=== PATIENT | male | born 1955 | race Caucasian/White ===

== ENCOUNTER → 2016-11-16 | Outpatient (CLI) | payer OTHER ==
[2016-11-16 11:38] LABS: ALBUMIN 3.9 g/dL (3.4-5.0); ALBUMIN/GLOBULIN RATIO 1.2 (1.0-1.7); CALCIUM 8.9 mg/dL (8.5-10.1); CHOLESTEROL/HDL RATIO 2.7; CREATININE 1.1 mg/dL (0.7-1.3); GFR 68.3; POTASSIUM 4.2 mmol/L (3.5-5.1); TOTAL BILIRUBIN 0.8 mg/dL (0.2-1.0); TOTAL PROTEIN 7.2 g/dL (6.4-8.2)
== END | disposition home or self-care (01) ==
LOC: LAB 10:23
PROVIDERS: ATTEND Internal Medicine Cardiovascular Disease
DX: I25.10 Atherosclerotic heart disease of native coronary artery without angina pectoris (principal)
CPT/HCPCS: 36415; 80053; 80061

== ENCOUNTER → 2017-11-22 | Outpatient (CLI) | payer OTHER ==
[2017-11-22 10:00] LABS: ALBUMIN 3.9 g/dL (3.4-5.0); ALBUMIN/GLOBULIN RATIO 1.2 (1.0-1.7); ALK PHOS 77 U/L (46-116); ALT (SGPT) 75 U/L (16-63); ANION GAP 7 (6-14); AST (SGOT) 31 U/L (15-37); BLOOD UREA NITROGEN 20 mg/dL (8-26); BUN/CREATININE RATIO 18 (6-20); CALCIUM 9.1 mg/dL (8.5-10.1); CARBON DIOXIDE 28 mmol/L (21-32); CHLORIDE 106 mmol/L (98-107); CHOLESTEROL 134 mg/dL (0-200); CHOLESTEROL/HDL RATIO 2.5; CREATININE 1.1 mg/dL (0.7-1.3); GFR 68.1; GLUCOSE 108 mg/dL (70-99); HDLC 54 mg/dL (40-60); LDLC 70 mg/dL (0-100); NON-HDL CHOLESTEROL 80 mg/dL (0-129); POTASSIUM 4.4 mmol/L (3.5-5.1); SODIUM 141 mmol/L (136-145); TOTAL BILIRUBIN 0.5 mg/dL (0.2-1.0); TOTAL PROTEIN 7.1 g/dL (6.4-8.2); TRIGLYCERIDES 49 mg/dL (0-150); VLDLC 10 mg/dL (0-40)
== END | disposition home or self-care (01) ==
LOC: LAB 09:35
DX: I25.10 Atherosclerotic heart disease of native coronary artery without angina pectoris (principal)
CPT/HCPCS: 36415; 80053; 80061

== ENCOUNTER → 2018-11-24 | Outpatient (CLI) | payer OTHER ==
[2018-11-24 15:18] LABS: BASO % 0 % (0-3); EOS # 0.2 x10^3/uL (0.0-0.7); EOS % 2 % (0-3); HEMATOCRIT 46.1 % (39.0-53.0); HEMOGLOBIN 15.5 g/dL (13.0-17.5); LYMPH # 1.9 x10^3/uL (1.0-4.8); LYMPH % 23 % (24-48); MEAN CORPUSCULAR HEMOGLOBIN 32 pg (25-35); MEAN CORPUSCULAR HGB CONC 34 g/dL (31-37); MEAN CORPUSCULAR VOLUME 93 fL (79-100); MONO # 0.9 x10^3/uL (0.0-1.1); MONO % 11 % (0-9); NEUT # 5.3 x10^3uL (1.8-7.7); NEUT % 64 % (31-73); PLATELET COUNT 219 x10^3/uL (140-400); RED BLOOD COUNT 4.93 x10^6/uL (4.30-5.70); WHITE BLOOD COUNT 8.3 x10^3/uL (4.0-11.0)
[2018-11-24 15:43] LABS: ALBUMIN 3.8 g/dL (3.4-5.0); ALBUMIN/GLOBULIN RATIO 1.3 (1.0-1.7); CALCIUM 8.8 mg/dL (8.5-10.1); CREATININE 1.1 mg/dL (0.7-1.3); GFR 67.8; POTASSIUM 4.2 mmol/L (3.5-5.1); TOTAL BILIRUBIN 0.8 mg/dL (0.2-1.0); TOTAL PROTEIN 6.8 g/dL (6.4-8.2)
[2018-11-24 15:52] LABS: CHOLESTEROL/HDL RATIO 2.5
== END | disposition home or self-care (01) ==
LOC: LAB 14:53
PROVIDERS: ATTEND Internal Medicine Cardiovascular Disease
DX: I25.10 Atherosclerotic heart disease of native coronary artery without angina pectoris (principal)
CPT/HCPCS: 36415; 80053; 80061; 83721; 85025

== ENCOUNTER → 2019-05-22 | Outpatient (CLI) | payer OTHER ==
[2019-05-22 11:56] LABS: ALBUMIN 4.1 g/dL (3.4-5.0); ALBUMIN/GLOBULIN RATIO 1.3 (1.0-1.7); CALCIUM 9.3 mg/dL (8.5-10.1); CREATININE 1.1 mg/dL (0.7-1.3); GFR 67.8; POTASSIUM 4.4 mmol/L (3.5-5.1); TOTAL BILIRUBIN 0.6 mg/dL (0.2-1.0); TOTAL PROTEIN 7.2 g/dL (6.4-8.2)
[2019-05-22 11:58] LABS: CHOLESTEROL/HDL RATIO 2.6
== END | disposition home or self-care (01) ==
LOC: LAB 11:08
PROVIDERS: ATTEND Internal Medicine Cardiovascular Disease
DX: I25.10 Atherosclerotic heart disease of native coronary artery without angina pectoris (principal); I10 Essential (primary) hypertension
CPT/HCPCS: 36415; 80053; 80061; 83721